=== PATIENT | female | born 1980 | race African-American/Black ===

== ENCOUNTER 2017-10-26 21:16 | Emergency (ER) | payer OTHER ==
[~2017-10-26] VITALS: Ht 167.6 cm; Wt 59.5 kg
[2017-10-26] MEDS ORDERED: LIDOCAINE HCL 1% 10 ML VIAL INJ ONE (23:30)
[2017-10-26] MEDS ORDERED: PERTUSS(ACELL),DIPH,TET VAC/PF 0.5 ML VIAL IM ONE (23:30)
[2017-10-27 01:22] VITALS: BP 133/86
== END 2017-10-27 01:26 | disposition home or self-care (01) ==
LOC: EMS 21:20
DX: S01.511A Laceration without foreign body of lip, initial encounter (principal); S60.519A Abrasion of unspecified hand, initial encounter; F17.210 Nicotine dependence, cigarettes, uncomplicated; W45.8XXA Other foreign body or object entering through skin, initial encounter; Y93.89 Activity, other specified; Y92.89 Other specified places as the place of occurrence of the external cause; Y99.8 Other external cause status
CPT/HCPCS: 12011; 90471; 90715; 99283; J3490